=== PATIENT | male | born 1995 | race Caucasian/White ===

== ENCOUNTER 2017-12-17 16:33 | Emergency (ER) | payer OTHER ==
[2017-12-17 17:05] VITALS: BP 123/73; PULSE 77; TEMP 98.3; BMI 24.1
--- NOTE | 2017-12-17 17:05 | PDOC ---
Rapid Medical Evaluation Chief Complaint: Injury Time Seen by Provider: 12/17/17 16:58 Medical Evaluation: Allergies Allergy/AdvReac Type Severity Reaction Status Date / Time No Known Allergies Allergy Verified 12/17/17 16:56 12/17/17 17:01 Pt with c/o: left hand laceration, tdap 4 yrs ago Pt on brief exam: 5 cm deep laceration involving fascia and visible tendons, brisk cap refill, normal 2 pt discrimination, FROM of left 1st digit Pt ordered for: none Pt to proceed to the ED Discharge Disposition - Diagnosis Laceration of finger of left hand - Referrals - Patient Instructions - Post Discharge Activity
[2017-12-17] MEDS ORDERED: LIDOCAINE HCL 2% (20ML MULTI-DOSE VIAL) NR ONE (18:01)
[2017-12-17] MEDS ORDERED: DIPHTH,PERTUSS(ACELL),TET 0.5 ML DISP.SYRIN IM ONE (19:01)
--- NOTE | 2017-12-17 19:11 | PDOC ---
History of Present Illness - General Chief Complaint: Injury Stated Complaint: WOUND Time Seen by Provider: 12/17/17 16:58 History Source: Patient - History of Present Illness Initial Comments: 12/17/17 19:11 Patient is a 22 y.o. male with no reported PMH who presented to the ED c/o 5 cm laceration on L dorsum of hand. No tendon damage. Neurovasculary intact. Past History - Past Medical History Allergies/Adverse Reactions: Allergies Allergy/AdvReac Type Severity Reaction Status Date / Time No Known Allergies Allergy Verified 12/17/17 16:56 COPD: No DVT: No - Immunization History Immunization Up to Date: Yes - Suicide/Smoking/Psychosocial Hx Smoking History: Never smoked Have you smoked in the past 12 months: No Information on smoking cessation initiated: No Hx Alcohol Use: No Drug/Substance Use Hx: No Substance Use Type: None *Physical Exam - Vital Signs Last Vital Signs Temp Pulse Resp BP Pulse Ox 98.3 F 77 16 123/73 98 12/17/17 17:00 12/17/17 17:00 12/17/17 17:00 12/17/17 17:00 12/17/17 17:00 Medical Decision Making - Medical Decision Making 12/18/17 18:11 Patient is a 22 y.o. male who presents with a laceration to the dorsum of his left hand. On PE patient shows no tendon damage and is neurovasculary intact. Laceration repair using *DC/Admit/Observation/Transfer Diagnosis at time of Disposition: Laceration - Discharge Dispostion Disposition: HOME Condition at time of disposition: Good Admit: No - Referrals - Patient Instructions Printed Discharge Instructions: DI for Suture Removal Additional Instructions: You can use Motrin for pain. Please return to the Emergency Department in 10 days for suture removal. Return to the Emergency Department before that time for any new/worsening/concerning symptoms including redness, pain, swelling, fevers. Print Language: [place] - Post Discharge Activity
--- NOTE | 2017-12-17 19:22 | PDOC ---
Attending Attestation - Resident Resident Name: Comfort Rosales - ED Attending Attestation I have performed the following: I have examined & evaluated the patient, The case was reviewed & discussed with the resident, I agree w/resident's findings & plan, Exceptions are as noted - HPI HPI: 12/17/17 19:21 22 yo male p/w left hand laceration - Physicial Exam PE: 12/17/17 19:22 wnwd 22 yo male head ncat abd nontender left hand has 2 pt proprioception, no tendon injury -he had full range of his digits -can adduct and abduct his thumb,good digit grasp, cap refill < 2 seconds, can make a tight fist and fully extend her fingers ,sensation is intact - Medical Decision Making 12/17/17 19:27 left hand laceration closed with 16 interrupted sutures
== END 2017-12-17 19:25 | disposition home or self-care (01) ==
LOC: JER 16:33
PROC: 0JQK0ZZ Repair Left Hand Subcutaneous Tissue and Fascia, Open Approach (ICD-10-PCS; principal; 2017-12-17)
DX: S61.412A Laceration without foreign body of left hand, initial encounter (principal); W26.0XXA Contact with knife, initial encounter; Y93.89 Activity, other specified; Y92.89 Other specified places as the place of occurrence of the external cause; Y99.8 Other external cause status
CPT/HCPCS: 12042; 90715; 99282-25